=== PATIENT | male | born 1935 | race Caucasian/White ===

== ENCOUNTER 2020-10-12 22:35 | Inpatient (IN) | payer MEDICARE, OTHER, SELFPAY ==
[2020-10-12 23:23] LABS: #Eosinphils 0.1 thou/uL (0.0-0.7); #Lymphocytes 1.1 thou/uL (1.20-3.40); #Monocytes 1.2 thou/uL (0.11-0.59); #Neutrophils 6.9 thou/uL (1.40-6.50); %Basophils 0.4 % (0.0-1.0); %Eosinophils 0.6 % (0.0-10.0); %Lymphocytes 11.7 % (21.0-51.0); %Monocytes 13.1 % (0.0-10.0); %Neutrophils 74.3 % (42.0-75.0); Hemoglobin 12.9 g/dL (14.0-18.0); Mean Corpuscular HGB CONC 33.2 g/dL (32.0-36.0); Mean Corpuscular Hemoglobin 30.7 pg (27.0-31.0); Mean Corpuscular Volume 92.4 fL (78.0-98.0); Mean Platelet Volume 8.4 fL (7.4-10.4); Platelet Count 196 thou/uL (130-400); RBC Distribution Width 11.5 % (11.5-14.5); Red Blood Cell (RBC) Count 4.21 mill/uL (4.70-6.10); White Blood Cell (WBC) Count 9.2 thou/uL (4.8-10.8)
[2020-10-12 23:29] LABS: INR-International Normal Ratio 1.1
[2020-10-12 23:44] LABS: ALT (SGPT) 9 U/L (8-55); AST (SGOT) 17 U/L (5-34); Albumin 3.4 g/dL (3.4-4.8); Alkaline Phosphatase 78 U/L (40-110); Anion Gap 15 mmol/L (10-20); BUN (Urea Nitrogen) 20 mg/dL (8.4-25.7); Bilirubin, Total 0.7 mg/dL (0.2-1.2); Calc. Creatinine Clearance 0 mL/min (70-130); Calcium 8.7 mg/dL (7.8-10.44); Carbon Dioxide 20 mmol/L (23-31); Chloride 104 mmol/L (98-107); Globulin 2.8 g/dL (2.4-3.5); Glucose 112 mg/dL (83-110); PTT 20.2 sec (22.9-36.1); Potassium 4.1 mmol/L (3.5-5.1); Protein, Total 6.2 g/dL (5.8-8.1); Sodium 135 mmol/L (136-145)
[2020-10-13] MEDS ORDERED: Ondansetron PF 4 MG/2 ML Vial IVP PRN (00:29)
[2020-10-13] MEDS ORDERED: Dextrose 50% Abboject 50 ML SYRINGE SLOW IVP PRN (00:29)
[2020-10-13] MEDS ORDERED: Ondansetron ODT 4 MG TAB PO PRN (00:29)
[2020-10-13] MEDS ORDERED: Dextrose 5% in Water 1,000 ML IV PRN (00:29)
[2020-10-13] MEDS ORDERED: hydrALAZINE 20 MG/ML VIAL SLOW IVP PRN (00:29)
[2020-10-13] MEDS ORDERED: Morphine 2 MG/ML VIAL SLOW IVP PRN (00:43)
[2020-10-13] MEDS: Sodium Chloride 0.9% 1,000 ML IV SCH ×2 (02:11→13:35)
[2020-10-13 02:43] VITALS: BMI 22.3
[2020-10-13 05:37] LABS: Hemoglobin A1c 5.7 % (4.0-6.0)
[2020-10-13 05:51] LABS: Anion Gap 12 mmol/L (10-20); BUN (Urea Nitrogen) 15 mg/dL (8.4-25.7); Calc. Creatinine Clearance 71 mL/min (70-130); Calcium 8.7 mg/dL (7.8-10.44); Carbon Dioxide 24 mmol/L (23-31); Chloride 105 mmol/L (98-107); Glucose 100 mg/dL (83-110); Phosphorus 2.9 mg/dL (2.3-4.7); Potassium 4.3 mmol/L (3.5-5.1); Sodium 137 mmol/L (136-145)
[2020-10-13] MEDS: traMADol HCl 50 MG TAB PO SCH ×4 (06:33→23:07)
[2020-10-13] MEDS: Ibuprofen 200 MG TAB PO SCH ×3 (06:33→21:30)
[2020-10-13] MEDS: Acetaminophen 325 MG TAB PO SCH ×4 (06:34→23:06)
[2020-10-13] MEDS ORDERED: CEFAZOLIN 2 GM in Premix Bag 1 BAG IVPB SCH (08:30)
[2020-10-13] MEDS ORDERED: Tranexamic Acid 1,000 MG in Sodium Chloride 0.9% 250 ML 250 ML IVPB SCH (08:45)
[2020-10-13] MEDS ORDERED: Sodium Chloride 0.9% 10 ML ONE (08:54)
[2020-10-13] MEDS ORDERED: Tranexamic Acid 1,000 MG/10 ML VIAL ONE (08:54)
[2020-10-13] MEDS ORDERED: Sodium Chloride 0.9% 100 ML ONE (08:55)
[2020-10-13] MEDS ORDERED: Fentanyl 250 MCG/5 ML VIAL ONE (09:18)
[2020-10-13] MEDS ORDERED: Ondansetron PF 4 MG/2 ML Vial ONE (09:19)
[2020-10-13] MEDS ORDERED: PROPOFOL 200 MG/20 ML VIAL ONE (09:19)
[2020-10-13] MEDS ORDERED: Lidocaine 1% PF 5 ML VIAL ONE (09:19)
[2020-10-13] MEDS ORDERED: Dexamethasone 20 MG/5 ML VIAL ONE (09:19)
[2020-10-13] MEDS ORDERED: Succinylcholine 200 MG/10 ml SYRINGE FS ONE (09:19)
[2020-10-13] MEDS ORDERED: Rocuronium Bromide 10 MG/ML (10ML VIAL) ONE (09:19)
[2020-10-13] MEDS ORDERED: SUGAMMADEX SODIUM 200 MG/2 ML VIAL ONE (10:01)
[2020-10-13] MEDS ORDERED: Ondansetron HCl/PF 4 MG/2 ML Vial IVP PRN (10:36)
[2020-10-13] MEDS ORDERED: Promethazine HCl 25 MG/ML VIAL IM PRN (10:36)
[2020-10-13] MEDS ORDERED: Promethazine HCl 25 MG/ML VIAL SLOW IVP PRN (10:36)
[2020-10-13] MEDS: Famotidine/PF 20 mg/2ml Vial SLOW IVP SCH ×2 (10:56→21:31)
[2020-10-13] MEDS: CEFAZOLIN 2 GM in Premix Bag 1 BAG IVPB SCH ×2 (13:32→21:30)
[2020-10-14 05:37] LABS: #Lymphocytes 0.7 thou/uL (1.20-3.40); #Neutrophils 9.9 thou/uL (1.40-6.50); %Basophils 0.1 % (0.0-1.0); %Eosinophils 0.1 % (0.0-10.0); %Lymphocytes 5.8 % (21.0-51.0); %Monocytes 8.8 % (0.0-10.0); %Neutrophils 85.2 % (42.0-75.0); Hemoglobin 10.4 g/dL (14.0-18.0); Mean Corpuscular HGB CONC 31.7 g/dL (32.0-36.0); Mean Corpuscular Hemoglobin 29.6 pg (27.0-31.0); Mean Corpuscular Volume 93.6 fL (78.0-98.0); Mean Platelet Volume 8.6 fL (7.4-10.4); Platelet Count 193 thou/uL (130-400); RBC Distribution Width 11.7 % (11.5-14.5); White Blood Cell (WBC) Count 11.6 thou/uL (4.8-10.8)
[2020-10-14] MEDS: traMADol HCl 50 MG TAB PO SCH ×3 (05:57→17:26)
[2020-10-14] MEDS: Acetaminophen 325 MG TAB PO SCH ×3 (05:57→17:27)
[2020-10-14] MEDS: Ibuprofen 200 MG TAB PO SCH ×3 (05:57→22:48)
[2020-10-14] MEDS ORDERED: Aspirin 81 mg Enteric Coated Tablet PO SCH ×3 (09:00→21:00)
[2020-10-14] MEDS: Famotidine/PF 20 mg/2ml Vial SLOW IVP SCH (09:06)
[2020-10-14] MEDS: Senokot S 8.6-50 MG TAB PO SCH ×2 (09:06→20:27)
[2020-10-14] MEDS: Polyethylene Glycol 3350 17 GM Packet PO SCH (09:07)
[2020-10-14] MEDS: Sodium Chloride 0.9% 1,000 ML IV SCH (09:07)
[2020-10-14] MEDS: Tamsulosin HCl 0.4 MG CAP PO SCH (20:27)
[2020-10-14] MEDS: Donepezil HCl 5 MG TAB PO SCH (20:27)
[2020-10-15] MEDS: traMADol HCl 50 MG TAB PO SCH ×5 (00:04→23:48)
[2020-10-15] MEDS: Acetaminophen 325 MG TAB PO SCH ×5 (00:05→23:48)
[2020-10-15] MEDS: Ibuprofen 200 MG TAB PO SCH ×3 (06:10→21:35)
[2020-10-15 06:31] LABS: #Eosinphils 0.1 thou/uL (0.0-0.7); #Lymphocytes 1.4 thou/uL (1.20-3.40); #Neutrophils 7.4 thou/uL (1.40-6.50); %Basophils 0.1 % (0.0-1.0); %Eosinophils 1.3 % (0.0-10.0); %Lymphocytes 14.2 % (21.0-51.0); %Monocytes 10.2 % (0.0-10.0); %Neutrophils 74.1 % (42.0-75.0); Hemoglobin 10.1 g/dL (14.0-18.0); Mean Corpuscular HGB CONC 33.1 g/dL (32.0-36.0); Mean Corpuscular Hemoglobin 30.9 pg (27.0-31.0); Mean Corpuscular Volume 93.6 fL (78.0-98.0); Mean Platelet Volume 8.5 fL (7.4-10.4); Platelet Count 212 thou/uL (130-400); RBC Distribution Width 11.7 % (11.5-14.5); Red Blood Cell (RBC) Count 3.26 mill/uL (4.70-6.10); White Blood Cell (WBC) Count 9.9 thou/uL (4.8-10.8)
[2020-10-15] MEDS: Senokot S 8.6-50 MG TAB PO SCH ×2 (08:04→21:35)
[2020-10-15] MEDS: Polyethylene Glycol 3350 17 GM Packet PO SCH (08:04)
[2020-10-15] MEDS: Enoxaparin Sodium 40 MG/0.4 ML SYRINGE SC SCH (21:35)
[2020-10-15] MEDS: Tamsulosin HCl 0.4 MG CAP PO SCH (21:35)
[2020-10-15] MEDS: Donepezil HCl 5 MG TAB PO SCH (21:35)
[2020-10-16] MEDS: traMADol HCl 50 MG TAB PO SCH ×4 (05:32→23:38)
[2020-10-16] MEDS: Acetaminophen 325 MG TAB PO SCH ×4 (05:32→23:39)
[2020-10-16] MEDS: Ibuprofen 200 MG TAB PO SCH ×3 (05:32→21:26)
[2020-10-16 06:07] LABS: #Eosinphils 0.4 thou/uL (0.0-0.7); #Lymphocytes 1.8 thou/uL (1.20-3.40); #Neutrophils 5.4 thou/uL (1.40-6.50); %Basophils 0.2 % (0.0-1.0); %Lymphocytes 21.1 % (21.0-51.0); %Neutrophils 62.6 % (42.0-75.0); Hemoglobin 10.3 g/dL (14.0-18.0); Mean Corpuscular Hemoglobin 30.7 pg (27.0-31.0); Mean Corpuscular Volume 93.2 fL (78.0-98.0); Mean Platelet Volume 8.4 fL (7.4-10.4); Platelet Count 246 thou/uL (130-400); RBC Distribution Width 11.8 % (11.5-14.5); Red Blood Cell (RBC) Count 3.37 mill/uL (4.70-6.10); White Blood Cell (WBC) Count 8.7 thou/uL (4.8-10.8)
[2020-10-16] MEDS: Senokot S 8.6-50 MG TAB PO SCH ×2 (07:44→21:24)
[2020-10-16] MEDS: Polyethylene Glycol 3350 17 GM Packet PO SCH (07:44)
[2020-10-16] MEDS: traMADol HCl 50 MG TAB PO PRN ×2 (10:13→21:25)
[2020-10-16] MEDS: Donepezil HCl 5 MG TAB PO SCH (21:26)
[2020-10-16] MEDS: Tamsulosin HCl 0.4 MG CAP PO SCH (21:27)
[2020-10-16] MEDS: Enoxaparin Sodium 40 MG/0.4 ML SYRINGE SC SCH (21:27)
[2020-10-17] MEDS: Acetaminophen 325 MG TAB PO SCH ×2 (05:59→11:05)
[2020-10-17] MEDS: traMADol HCl 50 MG TAB PO SCH ×2 (05:59→11:06)
[2020-10-17] MEDS: Ibuprofen 200 MG TAB PO SCH (06:00)
[2020-10-17] MEDS: Senokot S 8.6-50 MG TAB PO SCH (08:33)
[2020-10-17] MEDS: Polyethylene Glycol 3350 17 GM Packet PO SCH (08:33)
[2020-10-17 12:20] VITALS: BP 120/80; TEMP 97.8
== END 2020-10-17 13:00 | DRG 481 ==
LOC: ERS 22:35 → SURG B 10-13 00:29
PROVIDERS: ADMIT Surgery; ATTEND Surgery
PROC: 0QS736Z Reposition Left Upper Femur with Intramedullary Internal Fixation Device, Percutaneous Approach (ICD-10-PCS; principal; 2020-10-13)
DX: S72.142A Displaced intertrochanteric fracture of left femur, initial encounter for closed fracture (principal); D62 Acute posthemorrhagic anemia; E44.0 Moderate protein-calorie malnutrition; F03.90 Unspecified dementia, unspecified severity, without behavioral disturbance, psychotic disturbance, mood disturbance, and anxiety; I10 Essential (primary) hypertension; J44.9 Chronic obstructive pulmonary disease, unspecified; W01.0XXA Fall on same level from slipping, tripping and stumbling without subsequent striking against object, initial encounter; Z51.5 Encounter for palliative care; Z68.22 Body mass index [BMI] 22.0-22.9, adult
CPT/HCPCS: 36415; 72192; 76000; 80048; 80053; 83036; 84100; 85025; 85610; 85730; 86850; 86900; 86901; 90471; 90732; 93005; 94640; C1713; G0009; G0390; J0690; J1100; J1650; J2405; J2704; J3010; J3490; J7620; S0028